=== PATIENT | female | born 1955 | race Caucasian/White ===

== ENCOUNTER 2016-05-05 08:44 | Emergency (ER) | payer OTHER ==
[2016-05-05 09:17] VITALS: BP 126/76
--- NOTE | 2016-05-05 09:50 | UC ---
Skin Complaint HPI - HPI Summary HPI Summary: complaint of rash that started 2 days ago on her left torso rash is painful feels fatigued and run morenita had slight nausea and heartburn for 2 days, more gas than usual denies diarrhea, dysuria denies fever and chills took some ibuprofen yesterday with relief of stomach pain and rash pain - History of Current Complaint Chief Complaint: UCSkin Time Seen by Provider: 05/05/16 09:43 Stated Complaint: SKIN COMPLAINT Hx Obtained From: Patient - Allergy/Home Medications Allergies/Adverse Reactions: Allergies Allergy/AdvReac Type Severity Reaction Status Date / Time Amoxicillin Allergy Intermediate Rash And Verified 10/03/12 08:20 Itching Cefaclor [From Ceclor] Allergy Intermediate Rash And Verified 10/03/12 08:20 Itching Ciprofloxacin [From Cipro] Allergy Intermediate Rash And Verified 10/03/12 08:20 Itching Doxycycline Allergy Intermediate Rash And Verified 10/03/12 08:20 Itching Nitrofurantoin Allergy Intermediate Rash And Verified 10/03/12 08:20 [From Macrobid] Itching Penicillin V Allergy Intermediate Rash And Verified 10/03/12 08:20 [From Penicillin VK Itching Potassium] Sulfa Drugs Allergy Intermediate Rash And Verified 10/03/12 08:20 Itching Tetracyclines Allergy Intermediate Rash And Verified 10/03/12 08:20 Itching Trimethoprim [From Proloprim] Allergy Intermediate Rash And Verified 10/03/12 08 :20 Itching Review of Systems Constitutional: Negative Skin: Rash Eyes: Negative ENT: Negative Respiratory: Negative Cardiovascular: Negative Gastrointestinal: Abdominal Pain Genitourinary: Negative Motor: Negative Neurovascular: Negative Musculoskeletal: Negative Neurological: Negative Psychological: Negative All Other Systems Reviewed And Are Negative: Yes PMH/Surg Hx/FS Hx/Imm Hx Previously Healthy: Yes Endocrine History Of: Denies: Diabetes, Thyroid Disease Cardiovascular History Of: Denies: Cardiac Disorders, Hypertension Respiratory History Of: Denies: COPD, Asthma GI/ History Of: Denies: Ulcer Cancer History Of: Denies: Breast Cancer - Surgical History Surgical History: Yes Surgery Procedure, Year, and Place: Tonsilectomy when little. Knee surgeries. [place] teeth. Lumpectomy - 1999 - everything ok - Family History Known Family History: Positive: Diabetes - fatehr- Negative: Cardiac Disease, Hypertension - Social History Occupation: Employed Full-time Lives: With Family Alcohol Use: Rare Substance Use Type: None Smoking Status (MU): Never Smoked Tobacco Physical Exam Triage Information Reviewed: Yes Appearance: No Pain Distress, Well-Nourished Vital Signs: Initial Vital Signs Temp 97.6 F 05/05/16 09:15 Pulse 75 05/05/16 09:15 Resp 18 05/05/16 09:15 BP 126/76 05/05/16 09:15 Pulse Ox 97 05/05/16 09:15 Vital Signs Reviewed: Yes Eyes: Positive: Conjunctiva Clear ENT: Positive: Pharynx normal, TMs normal. Negative: Nasal congestion Neck: Positive: No Lymphadenopathy Respiratory: Positive: Lungs clear, Normal breath sounds, No respiratory distress Cardiovascular: Positive: RRR, No Murmur, Pulses Normal Abdomen Description: Positive: Nontender, Soft Bowel Sounds: Positive: Present Musculoskeletal: Positive: No Edema Neurological: Positive: Alert Psychological Exam: Normal Skin: Positive: rashes - left side of torso with raised papules on erythematous base in 17th dermatome. Course/Dx - Course Course Of Treatment: exam completed. shingles= treat with anitviral NSAIDS and followup with PCP - Differential Diagnoses - Skin Complaint Differential Diagnoses: Varicella Zoster - Diagnoses Provider Diagnoses: varicella zoster Discharge - Discharge Plan Condition: Stable Disposition: HOME Prescriptions: Ibuprofen TAB* [Motrin TAB* 800 MG] 800 mg PO Q8H #30 tab ValACYclovir (*) [Valtrex 1 GM(*)] 1 gm PO TID #21 tab Patient Education Materials: Shingles (ED) Referrals: Mickie Lutz MD [Primary Care Provider] - Additional Instructions: SHINGLES (Herpes Zoster) What is Shingles? Shingles, also called herpes zoster, is an infection caused by the same virus that causes chicken pox. It looks like small blisters. After you have had chicken pox the virus does not go away completely, it becomes inactive in your body. Years later, it can come back as shingles. Older adults and people with weakened immune systems are more likely to get shingles. Stress can also let the virus become active again. Being exposed to shingles can cause chicken pox if you have not had them before. The rash usually runs its course in 3 to 4 weeks, and then disappears. The pain may last for a month or more after the rash goes away. Symptoms Might Include: Burning, tingling, or itching Rash or blisters on the chest, back, face, or any other localized area The first symptom of shingles is usually pain In rare cases, pain is accompanied by flu-like symptoms (fever, depression, chills, stomach pain or diarrhea, and/or headache) The pain, which can range from mild itching or tingling to severe pain, is followed, usually within 5 days, by a rash or blisters The blisters will remain on only one side of the body Treatment for Shingles Includes: Anti-inflammatory drugs to ease inflammation. Prescription pain relievers and anti-depressant drugs to reduce pain and depression. Apply cool, wet compresses over the blistered areas. Apply a soothing lotion such as Calamine lotion. Take medicines for pain and itching, as prescribed by a healthcare provider. Benadryl tablets purchased [id number] may help control itching. Take as directed on package. The medicine may make you sleepy. You should not drink, drive, or do anything that requires you to be clear-headed while taking this medicine. Seek medical care at the first sign that you may have shingles. Early treatment may help to lessen the severity of the infection and lessen the pain after the rash heals. Call Your Doctor or Return Here IF: You start to have trouble breathing. You have a fever over 101.0 F when taken orally. You have pain that doesnt improve after taking pain medicine or using other comfort measures. You start to have any other new symptoms that worry you.
== END 2016-05-05 10:05 | disposition home or self-care (01) ==
LOC: UCEAST 08:44
DX: B02.9 Zoster without complications (principal); Z88.1 Allergy status to other antibiotic agents; Z88.0 Allergy status to penicillin; Z88.2 Allergy status to sulfonamides
CPT/HCPCS: 99212; G0463

== ENCOUNTER 2017-09-26 18:49 | Emergency (ER) | payer SELFPAY ==
[2017-09-26 19:01] VITALS: BP 141/73
[2017-09-26] MEDS ORDERED: Ibuprofen TAB* 600 MG PO ONE (19:17)
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
== END 2017-09-26 20:38 | disposition home or self-care (01) ==
LOC: UCEAST 18:49
DX: S80.02XA Contusion of left knee, initial encounter (principal); S70.02XA Contusion of left hip, initial encounter; S20.212A Contusion of left front wall of thorax, initial encounter; S90.32XA Contusion of left foot, initial encounter; R03.0 Elevated blood-pressure reading, without diagnosis of hypertension; I31.3 Pericardial effusion (noninflammatory)
CPT/HCPCS: 71250; 99212; A9270-GY; G0463